=== PATIENT | female | born 1945 | race Hispanic/Latino ===

== ENCOUNTER → 2019-04-08 | Outpatient (CLI) | payer OTHER ==
[~2019-04-08] MED LIST: ABAC1TAB15 PO; AMLO2.5T4 PO; DULO60CA64 PO; GEMF600T5 PO; LISI40TA4 PO; METO-409 PO; OMEG-75 PO
== END | disposition home or self-care (01) ==
LOC: OIH 07:57
PROVIDERS: ATTEND Internal Medicine Cardiovascular Disease
DX: Z13.6 Encounter for screening for cardiovascular disorders (principal); M47.814 Spondylosis without myelopathy or radiculopathy, thoracic region
CPT/HCPCS: 75571

== ENCOUNTER 2019-04-24 08:14 | Day surgery (SDC) | payer OTHER ==
[2019-04-22 15:09] VITALS: BP 120/54
[2019-04-22 15:14] LABS: BASOPHILS % (AUTO) 0.4 % (0.0-5.0); EOSINOPHILS % (AUTO) 0.3 % (0.0-8.0); HEMATOCRIT 38.9 % (36-48); LYMPHOCYTES % (AUTO) 31.8 % (21.0-51.0); MEAN CORPUSCULAR HEMOGLOBIN 32.6 pg (27.0-33.0); MEAN CORPUSCULAR VOLUME 95.9 fL (79-99); MONOCYTES % (AUTO) 10.1 % (3.0-13.0); NEUTROPHILS % (AUTO) 57.4 % (40.0-77.0); PLATELET COUNT (AUTO) 298 K/uL (130-400); RED BLOOD CELL COUNT(AUTO) 4.06 MIL/uL (4.00-5.50); RED CELL DISTRIBUTION WIDTH 13.3 % (11.0-15.5); WHITE BLOOD COUNT (AUTO) 6.8 K/uL (4.8-10.8)
[2019-04-22 15:15] LABS: APPEARANCE,URINE Clear (CLEAR); BILIRUBIN,URINE Negative (NEGATIVE); COLOR,URINE Dark Yellow (YELLOW); GLUCOSE, URINE (UA) Negative (NEGATIVE); KETONES,URINE Negative (NEGATIVE); LEUKOCYTE ESTERASE ,URINE Trace (NEGATIVE); NITRATE,URINE Negative (NEGATIVE); OCCULT BLOOD,URINE Negative (NEGATIVE); PROTEIN,URINE POS 2+ mg/dL (NEGATIVE)
[2019-04-22 15:22] LABS: CREATININE 1.7 mg/dL (0.5-1.5); POTASSIUM 5.2 mmol/L (3.5-5.1)
[2019-04-22 15:36] LABS: BACTERIA,URINE Few /HPF (None Seen); INR 0.98 (0.85-1.15); MUCUS,URINE Few LPF (None Seen); PARTIAL THROMBOPLASTIN TIME 27.8 SEC (26.3-35.5); PROTHROMBIN TIME 10.3 SEC (9.6-11.6)
--- NOTE | 2019-04-23 15:28 | NUR ---
ABNORMAL LABS CREAT, POTASSIUM, UA AND CXR REPORTED TO [facility]. NO NEW ORDERS RECEIVED.
[2019-04-24] VITALS (9 sets, daily range): BP systolic 113–164; BP diastolic 50–64
[~2019-04-24] VITALS: Ht 147.3 cm; Wt 58.3 kg
[~2019-04-24 08:14] MED LIST changes: +SODIUM CHLORIDE 0.9% 1000ML 1,000 ML IV ONE
[2019-04-24] MEDS ORDERED: FAMO20TA8 PO (09:12)
[2019-04-24] MEDS ORDERED: MONT10TA24 PO (09:12)
[2019-04-24] MEDS ORDERED: GLYC1TAB11 PO (09:12)
[2019-04-24] MEDS ORDERED: ROSU20TA31 PO (09:12)
[2019-04-24] MEDS ORDERED: CLOP75TA32 PO (09:12)
[2019-04-24] MEDS ORDERED: GABA-531 PO (09:12)
[2019-04-24] MEDS ORDERED: FISH1CAP27 PO (09:12)
[2019-04-24] MEDS ORDERED: NITR0.4T50 SL (09:12)
[2019-04-24] MEDS ORDERED: JULUCA PO (09:12)
[2019-04-24] MEDS ORDERED: AEC81 PO (09:12)
--- NOTE | 2019-04-24 09:22 | NUR ---
NOTE BRUISING TO LEFT ELEAZAR ORBITAL AREA, PT STATES SHE FELL 2 WEEKS AGO. PT ALSO STATED SHE TOOK HER NITROGLYCERIN THIS AM BUT DID NOT HAVE ANY CHEST PAIN, STATED SHE THOUGHT THE PRE OP NURSE TOLD HER TO TAKE IN AM DOS
[2019-04-24] MEDS ORDERED: BIVALIRUDIN 250 MG/VIAL IV ONE (09:27)
[2019-04-24] MEDS ORDERED: NITROGLYCERIN 5 MG/ML 10 ML VIAL IV ONE (09:28)
[2019-04-24] MEDS ORDERED: IOHEXOL 350 MG/ML 100ML INFUS..BTL IV ONE (09:28)
[2019-04-24] MEDS ORDERED: IOHEXOL-350 50ML VIAL IV ONE (09:28)
[2019-04-24] MEDS ORDERED: FENTANYL CITRATE PF 50 MCG/1 ML 2ML VIAL ONE (09:28)
[2019-04-24] MEDS ORDERED: LIDOCAINE HCL 2% 20ML ONE ×2 (09:28→10:44)
[2019-04-24] MEDS ORDERED: MIDAZOLAM HCL 1 MG/ML 2ML VIAL ONE (09:28)
--- NOTE | 2019-04-24 09:30 | NUR ---
[facility] PT TRANSFERRED TO [facility] VIA BED BY [facility]. PT STABLE. FRIEND AT BEDSIDE.
[2019-04-24] MEDS ORDERED: HEPARIN SODIUM 1000UNIT/ML 10ML VIAL ONE (09:44)
[2019-04-24] MEDS ORDERED: NICARDIPINE HCL 25 MG/10 ML ML IV ONE (09:45)
[2019-04-24] MEDS ORDERED: NIFEDIPINE ER 30 MG TAB PO SCH (12:00)
--- NOTE | 2019-04-24 15:10 | NUR ---
DISCHARGE PT DISCHARGED VIA WHEELCHAIR WITH FRIEND BARTOLOME. PT STABLE. CATH SITE TO RIGHT RADIAL REMAINS SOFT, DRESSING DRY AND INTACT, NO OOZING NO HEMATOMA NOTED. DISCHARGE INSTRUCTIONS GIVEN TO PT ANDS FRIEND BARTOLOME, BOTH VERBALIZED UNDERSTANDING. INSTRUCTIONS FOR RADIAL SITE CARE ALSO GIVEN, BOTH VERBALIZED UNDERSTANDING. PT TOLERATED ORAL FLUIDS AND DIET WELL.
== END 2019-04-24 15:10 | disposition home or self-care (01) ==
LOC: DAH 08:14
PROVIDERS: ATTEND Internal Medicine Cardiovascular Disease
DX: I25.118 Atherosclerotic heart disease of native coronary artery with other forms of angina pectoris (principal); E78.5 Hyperlipidemia, unspecified; I12.9 Hypertensive chronic kidney disease with stage 1 through stage 4 chronic kidney disease, or unspecified chronic kidney disease; N18.9 Chronic kidney disease, unspecified; Z79.82 Long term (current) use of aspirin; Z79.899 Other long term (current) drug therapy; Z82.49 Family history of ischemic heart disease and other diseases of the circulatory system; Z83.3 Family history of diabetes mellitus; Z82.3 Family history of stroke
CPT/HCPCS: 36415; 71045; 80048; 81001; 85025; 85610; 85730; 93005; 93458; A4215; A4216; A4221; A4222; A4223 ×3; A4606; A4663; C1769; C1887; C1894; J1644 ×2; J2250; J3010; J3490 ×3; J7030; Q9965 ×2; Q9967 ×2; 99156; 99157; J0583

== ENCOUNTER → 2019-11-07 | Outpatient (CLI) | payer OTHER ==
[~2019-11-07] MED LIST changes: -ABAC1TAB15 PO; +AEC81 PO; -AMLO2.5T4 PO; +CLOP75TA32 PO; -DULO60CA64 PO; +FAMO20TA8 PO; +FISH1CAP27 PO; +GABA-531 PO; +GLYC1TAB11 PO; +JULUCA PO; +MONT10TA26 PO; +NITR0.4T50 SL; -OMEG-75 PO; +ROSU20TA31 PO; -SODIUM CHLORIDE 0.9% 1000ML 1,000 ML IV ONE
== END | disposition home or self-care (01) ==
LOC: RAH 12:06
PROVIDERS: ATTEND Internal Medicine Cardiovascular Disease
DX: I25.10 Atherosclerotic heart disease of native coronary artery without angina pectoris (principal)
CPT/HCPCS: 78803; 93306; 93356; A9538